=== PATIENT | female | born 1945 | race Caucasian/White ===

== ENCOUNTER 2018-05-02 12:55 | Outpatient (RCR) | payer OTHER, SELFPAY | END 2018-07-04 12:15 | LOC: SP 12:55 | PROVIDERS: PCP Psychiatry & Neurology Neurology; Visit Provider Psychiatry & Neurology Neurology | DX: G20 Parkinson's disease (principal); R13.10 Dysphagia, unspecified; R49.8 Other voice and resonance disorders | CPT/HCPCS: 92610 ==